=== PATIENT | female | born 1970 | race Caucasian/White ===

== ENCOUNTER 2025-05-11 21:53 | Emergency (ER) | payer OTHER ==
[~2025-05-11] VITALS: Ht 160 cm; Wt 72.6 kg
[2025-05-11] MEDS ORDERED: LIDOCAINE 2.5%/PRILOCAINE 2.5% CREAM 30 GM TUBE TOP ONE (22:30)
[2025-05-12] MEDS ORDERED: IBUP400 PO (00:04)
== END 2025-05-12 00:15 | disposition home or self-care (01) ==
LOC: ER 21:53
DX: T23.161A Burn of first degree of back of right hand, initial encounter (principal); X10.2XXA Contact with fats and cooking oils, initial encounter; Y99.0 Civilian activity done for income or pay; Z91.010 Allergy to peanuts; Z91.030 Bee allergy status; F17.200 Nicotine dependence, unspecified, uncomplicated
CPT/HCPCS: 99283; A9270